=== PATIENT | female | born 1995 | race Caucasian/White ===

== ENCOUNTER 2017-12-21 19:15 | Emergency (ER) | payer OTHER ==
[~2017-12-21] VITALS: Ht 160 cm; Wt 65.3 kg
[2017-12-21 19:29] VITALS: Ht 160 cm; Wt 65.3 kg
[2017-12-21 21:17] VITALS: BP 125/62
== END 2017-12-21 21:17 | disposition home or self-care (01) ==
LOC: ED 19:15
DX: S63.502A Unspecified sprain of left wrist, initial encounter (principal); V43.92XA Unspecified car occupant injured in collision with other type car in traffic accident, initial encounter; Y93.89 Activity, other specified; Y92.89 Other specified places as the place of occurrence of the external cause; Y99.8 Other external cause status
CPT/HCPCS: 90715